=== PATIENT | male | born 1975 | race Two or more races ===

== ENCOUNTER 2024-02-06 11:05 | Outpatient (CLI) | payer OTHER, SELFPAY | END 2024-02-06 11:06 | disposition home or self-care (01) | LOC: NFLDREF 02-07 11:46 | PROVIDERS: PCP Internal Medicine; Referring Provider Internal Medicine; Visit Provider Internal Medicine | DX: I10 Essential (primary) hypertension (principal); E78.5 Hyperlipidemia, unspecified | CPT/HCPCS: 80053; 80061 ==

== ENCOUNTER 2024-05-31 09:21 | Outpatient (CLI) | payer OTHER, SELFPAY | END 2024-05-31 09:22 | disposition home or self-care (01) | LOC: NFLDREF 06-03 12:55 | PROVIDERS: PCP Internal Medicine; Referring Provider Internal Medicine; Visit Provider Internal Medicine | DX: E78.5 Hyperlipidemia, unspecified (principal); R73.03 Prediabetes; Z12.5 Encounter for screening for malignant neoplasm of prostate | CPT/HCPCS: 80053; 80061; G0103 ==

== ENCOUNTER 2024-06-05 10:58 | Outpatient (CLI) | payer OTHER, SELFPAY ==
--- OUTSIDE RECORDS SUMMARY | 2024-06-06 13:40 | XMS_ITS | Clinical Summary ---
Author Organization [facility] Address [address] [place] [address] Care Team Providers Care Incident Response Coordinator Name Role Phone No Ref-Primary, Physician Primary Care Provider Dima Alonso MD Unavailable [phone] Allergies No known active allergies Medications metFORMIN (GLUCOPHAGE) 500 MG tablet Take 500 mg by mouth 2 times daily (with meals) Active simvastatin (ZOCOR) 40 MG tablet Take 40 mg by mouth At Bedtime Active acetaminophen (TYLENOL) 325 MG tabletIndication s:Total knee replacement status, right Take 2 tablets (650 mg) by mouth every 4 hours as needed for other (mild pain) 100 tablet 3 Active aspirin (ASA) 325 MG EC tabletIndication s:Total knee replacement status, right Take 1 tablet (325 mg) by mouth daily 42 tablet 3 Active oxyCODONE (ROXICODONE) 5 MG tabletIndication s:Total knee replacement status, right Take 1-2 tablets (5-10 mg) by mouth every 4 hours as needed for moderate to severe pain 30 tablet 3 Active hydrOXYzine (ATARAX) 25 MG tabletIndication s:Total knee replacement status, right Take 1 tablet (25 mg) by mouth every 6 hours as needed for itching or anxiety (with pain, moderate pain) 30 tablet 3 Active Active Problems Problem Noted Date Diagnosed Date Status post total knee replacement 04/11/2023 Social History Tobacco Use Types Packs/Day Years Used Date Smoking Tobacco: Some Days Cigarettes Smokeless Tobacco: Never Tobacco Cessation:Ready to Q uit: Not Asked; Counseling Given: Not Answered Alcohol Use Standard Drinks/Week Comments Yes 0 (1 standard drink = 0.6 oz pur e alcohol) Occas Adolescent Education Answer Date Record ed Getting School Help Needed Not on file 04/06 Sex and Gender Information Value Date Recorded Sex Assigned at Not on file 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 Gender Identity Not on file Sexual Orientation Not on file Last Filed Vital Signs Vital Sign Reading Time Taken Comments Blood Pressure 134/79 04/12/2023 9:00 AM CDT Pulse 72 04/12/2023 8:32 AM CDT Temperature 36.1 C (97 F) 04/12/2023 8:32 AM CDT Respiratory Rate 19 04/12/2023 8:32 AM CDT Oxygen Saturation 97% 04/12/2023 9:00 AM CDT Inhaled Oxygen Concentration - - Weight 115.9 kg (255 lb 8.2 oz) 04/11/2023 7:50 PM CDT Height 167.6 cm (5' 6) 04/11/2023 7:50 PM CDT Body Mass Index 41.24 04/11/2023 7:50 PM CDT Plan of Treatment Health Maintenance Due Date Last Done Comments CT COLONOGRAPHY 1974 DIABETIC FOOT EXAM 1974 EYE EXAM 1974 FIT 1974 FLEX SIG 1974 LIPID 1974 MICROALBUMIN 1974 YEARLY PREVENTIVE VISIT 1974 sDNA (Cologuard) 1974 Pneumococcal Vaccine: Pediatrics (0 to 5 Years) and At-Risk Patients (6 to 64 Years) (1 of 2 - PCV) 1980 COLONOSCOPY 1984 COLORECTAL CANCER SCREENING 1984 HIV SCREENING 1989 HEPATITIS C SCREENING 1992 HEPATITIS B IMMUNIZATION (1 of 3 - 19+ 3-dose series) 1993 01/23/2014 DTAP/TDAP/TD IMMUNIZATION (1 - Tdap) 01/24/2014 01/23/2014 A1C 06/17/2023 03/18/2023 PHQ-2 (once per calendar year) 2023 COVID-19 Vaccine ( - season) 2024 04/11/2022, 06/13/2021, 11/21/2020, Additional history exists INFLUENZA VACCINE (#1) 2024 04/11/2022, 2009 ANNUAL REVIEW OF HM ORDERS 03/18/2024 03/18/2023 BMP 03/18/2024 03/18/2023 ZOSTER IMMUNIZATION (1 of 2) 2024 ADVANCE CARE PLANNING 03/18/2028 03/18/2023 RSV VACCINE (1 - 1-dose 75+ series) 2049 HPV IMMUNIZATION Aged Out No longer e ligible based on patient's age to complete this topic MENINGITIS IMMUNIZATION Aged Out No l onger eligible based on patient's age to complete this topic RSV MONOCLONAL ANTIBODY Aged Out No l onger eligible based on patient's age to complete this topic Medical Devices Implanted Type Area Salvage Clerk Device Identifier Shelf Expiration Date Model / Serial / Lot Bone Cement Simplex Full Dose 6191-1-001 - [id number] Implanted:Qty: 2 on 04/11/2023 by Dontae Edwards DO at [facility] Cement, Bone Right: Knee [employer] 09/08/2023 6191-1-001 / / [id number] System Tkr Id Imprt Kn Crcte Rtn Jig Strl Lf - [id number] Implanted:Qty: 1 on 04/11/2023 by Dontae Edwards DO at [facility] Total Joint Component /Insert Right: Knee CONFORMIS TCR-000-D0 02 / / Identity Imprint Cr Femur Size 5 [id number] - [id number] Implanted:Qty: 1 on 04/11/2023 by Dontae Edwards DO at [facility] Total Joint Component /Insert Right: Knee CONFORMIS 02/08/2028 TCR-101-F0 5S / / [id number] Identity Imprint Cr Tibia Size 5 [id number] - [id number] Implanted:Qty: 1 on 04/11/2023 by Dontae Edwards DO at [facility] Total Joint Component /Insert Right: Knee CONFORMIS 02/08/2028 TCR-301-T0 5S / / [id number] Cmpnt Ptlr Ovl 38x9mm Cmnt Itotal Ipoly Xe Kn Strl Lf - [id number] Implanted:Qty: 1 on 04/11/2023 by Dontae Edwards DO at [facility] Total Joint Component /Insert Right: Knee CONFORMIS 12/08/2024 [id number] / [id number] / Insert Cr Implanted:Qty: 1 on 04/11/2023 by Dontae Edwards DO at [facility] Right: Knee [id number] 12/09/2023 [id number] / / [id number] Procedures Procedure Name Priority Date/Time Associated Diagnosis Comments BASIC METABOLIC PANEL Routine 03/18/2023 11:53 AM CDT Preoperative examination HEMOGLOBIN A1C Routine 03/18/2023 11:53 AM CDT Type 2 diabetes mellitus without complication, without long-term current use of insulin (H) from Last 3 Months or Most Recently Relevant to Health Maintenance Results * (ABNORMAL) Hemoglobin A1c (03/18/2023 11:53 AM CDT) Hemoglobin A1C 6.5(H) 0.0 - 5.6 % 03/18/2023 12:00 PM CDT [facility] Comment: Normal <5.7% Prediabetes 5.7-6.4% Diabetes 6.5% or higher Note: Adopted from ADA consensus guidelines. Blood STRUCTURE OF LEFT UPPER LIMB / Unknown Venipuncture / Unknown 03/18/2023 11:53 AM CDT 03/18/2023 11:53 AM CDT us Dima Alonso MD LAB - BLOOD ORDERABLES F inal Result [facility] [place] [facility] [address], [address] [place] [address], [place] [phone] * (ABNORMAL) Basic metabolic panel (Ca, Cl, CO2, Creat, Gluc, K, Na, BUN) (03/18/2023 11:53 AM CDT) Sodium 140 136 - 145 mmol/L 03/18/2023 8:44 PM CDT [facility] Potassium 4.0 3.4 - 5.3 mmol/L 03/18/2023 8:44 PM CDT [facility] Chloride 105 98 - 107 mmol/L 03/18/2023 8:44 PM CDT [facility] Carbon Dioxide (CO2) 23 22 - 29 mmol/L 03/18/2023 8:44 PM CDT [facility] Anion Gap 12 7 - 15 mmol/L 03/18/2023 8:44 PM CDT [facility] Urea Nitrogen 21.5(H) 6.0 - 20.0 mg/dL 03/18/2023 8:44 PM CDT [facility] Creatinine 0.77 0.67 - 1.17 mg/dL 03/18/2023 8:44 PM CDT [facility] Calcium 9.1 8.6 - 10.0 mg/dL 03/18/2023 8:44 PM CDT [facility] Glucose 122(H) 70 - 99 mg/dL 03/18/2023 8:44 PM CDT [facility] GFR Estimate >90 >60 mL/min/1.7 3m2 03/18/2023 8:44 PM CDT [facility] Blood STRUCTURE OF LEFT UPPER LIMB / Unknown Venipuncture / Unknown 03/18/2023 11:53 AM CDT 03/18/2023 11:53 AM CDT Dima Alonso MD LAB - BLOOD ORDERABLES F inal Result [facility] [place] [facility] [address] [facility] [address] [facility], [address] [place] [address], [place] [phone] from Last 3 Months or Most Recently Relevant to Health Maintenance Insurance [address] [address] COMMERCIAL Advance Directives For more information, please contact: [phone] * Full Code (Latest Code Status on File) Date Activated Date Inactivated Comments 04/11/2023 7:07 PM 04/12/2023 4:12 PM All basic an d advanced life-sustaining interventions are performed as appropriate Question Answer Comments Code status determined by: Discussion with xavi nt/ legal decision maker Care Teams Incident Response Coordinator Relationship Specialty Start Date End Date No Ref-Primary, Physician PCP - General 03/11/23 Dima Alonso MD [address] [place] [address] Assigned PCP 02/23/23
--- OUTSIDE RECORDS SUMMARY | 2024-06-06 13:40 | XMS_ITS | Referral Summary ---
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 Cement, Bone Right: Knee [employer] 09/08/2023 6191-1-001 / / [id number] System Tkr Id Imprt Kn Crcte Rtn Jig Strl Lf - [id number] Implanted:Qty: 1 on 04/11/2023 by Dontae Edwards DO at [facility] Total Joint Component /Insert Right: Knee CONFORMIS TCR-000-D0 02 / / Identity Imprint Cr Femur Size 5 [id number] - [id number] Implanted:Qty: 1 on 04/11/2023 by Dontae Edwards DO at [facility] Total Joint Component /Insert Right: Knee CONFORMIS 02/08/2028 TCR-101-F0 5S / / [id number] Identity Imprint Cr Tibia Size 5 [id number] - [id number] Implanted:Qty: 1 on 04/11/2023 by Dontae Edwards DO at [facility] Total Joint Component /Insert Right: Knee CONFORMIS 02/08/2028 [facility]-301-T0 5S / / [id number] Cmpnt Ptlr Ovl 38x9mm Cmnt Itotal Ipoly Xe Kn Strl Lf - [id number] Implanted:Qty: 1 on 04/11/2023 by Dontae Edwards DO at [facility] Total Joint Component /Insert Right: Knee CONFORMIS 12/08/2024 [id number] / [id number] / Insert Cr Implanted:Qty: 1 on 04/11/2023 by Dontae Edwards DO at [facility] Right: Knee [id number] 12/09/2023 [id number] / / [id number] Procedures Procedure Name Priority Date/Time Associated Diagnosis [...] LAB - BLOOD ORDERABLES F inal Result [facility] [address], [address] [place] [address], [place] [phone] * (ABNORMAL) Basic metabolic panel (Ca, Cl, CO2, Creat, Gluc, K, Na, BUN) (03/18/2023 11:53 AM CDT) Pathologist [facility] Sodium 140 136 - 145 mmol/L 03/18/2023 [...] BLOOD ORDERABLES F inal Result [facility] [place] [facility] [address] [facility], [address] [place] [address], [place] [phone] from Last 3 Months or Most Recently Relevant to Health Maintenance Insurance [facility] COMMERCIAL Advance Directives For more information, please contact: [phone] * Full Code (Latest Code Status on File) Date Activated Date Inactivated Comments 04/11/2023 7:07 PM 04/12/2023 4:12 PM All basic an d advanced life-sustaining interventions are performed as appropriate Question Answer Comments Code status determined by: Discussion with patie nt/ legal decision maker Care Teams Meter Reader Inspector Relationship Specialty Start Date End Date No Ref-Primary, Physician PCP - General 03/11/23 Dima Alonso MD [address] [place] [address] Assigned PCP 02/23/23
--- OUTSIDE RECORDS SUMMARY | 2024-06-06 13:40 | XMS_ITS | Clinical Summary ---
Author Organization [facility] Address [address] [place] [address] Care Team Providers Care Swatch Checker Name Role Phone Navi Foreman MD Primary Care Provider [phone] Source Comments You are receiving this document as you are listed as the primary care provider,follow-up provider, or the patient has been referred to you for consultation.This is in compliance with the Medicare and[facility] EHR Incentive Program,which states Providers who transition their patient to another setting of careor provider of care or refers their patient to another provider of care shouldprovide summary care record for each transition of care or referral. [facility] Allergies No known active allergies Medications Medication Sig Dispensed Refills Start Date End Date Status unknown medication Indications: PN: 12/06/2006 Active Family History Medical History Relation Name Comments Amblyopia/Strabismus Negative Family History Cataract Negative Family History Glaucoma Negative Family History Macular Degeneration Negative Family History Retinal Detachment Negative Family History Social History Tobacco Use Types Packs/Day Years Used Date Smoking Tobacco: Unknown Sex and Gender Information Value Date Recorded Sex Assigned at Not on file Gender Identity Not on file Sexual Orientation Not on file Last Filed Vital Signs Vital Sign Reading Time Taken Comments Blood Pressure - - Pulse - - Temperature - - Respiratory Rate - - Oxygen Saturation - - Inhaled Oxygen Concentration - - Weight 111.6 kg (246 lb) 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 Height 169 cm (5' 6.54) 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 Body Mass Index 39.07 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 Plan of Treatment Health Maintenance Due Date Last Done Comments Colon Cancer Screening Plan Due 1974 Diabetes: Foot Exam 1974 Hep C Screening (Preventive Services) 1974 PSA Screening Discussion 1974 Pneumococcal (1 - PCV) 1980 HIV Screening (Preventive Services) 1990 Adult Preventive Visit 1992 HepB (1) 1993 DTaP/Tdap/Td (1 - Tdap) 01/24/2014 01/23/2014 Diabetes: Eye Exam 07/21/2016 07/21/2015 Diabetes: HGBA1C 04/01/2023 09/29/2022, , 12/29/2021, Additional history exists Diabetes: Creatinine 09/30/2023 09/29/2022, 12/29/2021, 03/27/2019 Diabetes: Urine Microalbumin 09/30/2023 09/29/2022 COVID-19 Vaccine ( season) 2024 06/13/2021, 11/21/2020, 10/31/2020 Influenza (#1) 2024 05/24/2010 Zoster/Shingles (1 of 2) 2024 Diabetes: Lipid Panel 09/30/2027 09/29/2022 , 09/29/2022, 03/26/2022, Additional history exists Cholesterol Discontinued 09/29/2022, 03/11, 09/18/2021, Additional history exists HepA Aged Out No longer eligi ble based on patient's age to complete this topic Hib Aged Out No longer eligi ble based on patient's age to complete this topic IPV (Polio) Aged Out No longer eligi ble based on patient's age to complete this topic Infant RSV Aged Out No longer eligi ble based on patient's age to complete this topic MCV4 Aged Out No longer eligi ble based on patient's age to complete this topic Procedures Procedure Name Priority Date/Time Associated Diagnosis Comments COMPREHENSIVE METABOLIC PANEL Routine 09/29/2022 10:42 AM CDT Routine general medical examination at health care facility ALBUMIN/CREAT RATIO Routine 09/29/2022 1 0:42 AM CDT Routine general medical examination at health care facility HGB A1C Routine 09/29/2022 10:42 AM CDT Routine general medical examination at health care facility LIPID PANEL & DIRECT LDL (IF NEEDED) Routine 09/29/2022 10:42 AM CDT Routine general medical examination at health care facility from Last 3 Months or Most Recently Relevant to Health Maintenance Results * (ABNORMAL) Lipid Panel (reflex to Direct LDL if indicated) (09/29/2022 10:42 AM CDT) Cholesterol 263(H) 0 - 199 mg/dL 09/29/2022 2:24 PM CDT [facility] Triglyceride 480(H) <=149 mg/dL 09/29/2022 2:24 PM T [facility] HDL Cholesterol 43 >=40 mg/dL 09/29/2022 2:24 PM T [facility] LDL, Calculated 2:24 PM [facility] Comment:Unable to calculate, raw result outside instrument reportable range. Non HDL Chol, Calculated 220(H) <=159 mg/dL 09/29/2022 2:24 PM T [facility] Cholesterol/HDL Ratio 6.1 09/29/2022 2:24 PM [facility] Hours Fasting Unknown 09/29/2022 2:24 PM [facility] Blood Venipuncture / Unknown 09/29/2022 10:42 AM CDT 09/29/2022 11:04 AM CDT Narrative [facility] - 09/29/2022 2:24 PM CDT Calculated LDL is invalid when Triglyceride is >400 mg/dL. Zara Gregg MD LAB_1 [facility] [address] [place] [address], [facility] [phone] * (ABNORMAL) Comp Metabolic Panel (09/29/2022 10:42 AM CDT) Sodium 138 136 - 145 mmol/L 09/29/2022 2:24 PM CDT [facility] Potassium 3.6 3.5 - 5.1 mmol/L 09/29/2022 2:24 PM CDT [facility] Chloride 102 98 - 109 mmol/L 09/29/2022 2:24 PM [facility] CO2 24 20 - 29 mmol/L 09/29/2022 2:24 PM [facility] Anion Gap 12 7 - 16 mmol/L 09/29/2022 2:24 PM [facility] Calcium 9.7 8.4 - 10.4 mg/dL 09/29/2022 2:24 PM [facility] BUN 19 7 - 26 mg/dL 09/29/2022 2:24 PM [facility] Creatinine 0.90 0.73 - 1.18 mg/dL 09/29/2022 2:24 PM [facility] Alkaline Phosphatase 100 40 - 150 U/L 09/29/2022 2:24 PM [facility] AST (SGOT) 58(H) 10 - 40 U/L 09/29/2022 2:24 PM [facility] ALT (SGPT) 105(H) <=55 U/L 09/29/2022 2:24 PM [facility] Bilirubin, Total 1.3(H) 0.2 - 1.2 mg/dL 09/29/2022 2:24 PM [facility] Protein, Total 7.9 6.4 - 8.3 g/dL 09/29/2022 2:24 PM [facility] Albumin 4.3 3.5 - 5.0 g/dL 09/29/2022 2:24 PM [facility] Glucose 159(H) 70 - 100 mg/dL 09/29/2022 2:24 PM [facility] Comment:The given reference range is for the fasting state. Non-fasting reference range for glucose is 70 - 180 mg/dL. Hours Fasting Unknown 09/29/2022 2:24 PM [facility] GFR, Estimated >60 >60 mL/min/1.7 3m2 09/29/2022 2:24 PM [facility] Blood Venipuncture / Unknown 09/29/2022 10:42 AM CDT 09/29/2022 11:04 AM CDT Zara Gregg MD LAB_1 [facility] [address] [place] [address], [facility] [phone] * Albumin/Creatinine Ratio,Random Urine (09/29/2022 10:42 AM CDT) Pathologist [facility] Albumin/Creati nine Ratio, Urine, Random 10 <30 mg/g 09/29/2022 2:08 PM CDT [facility] Albumin, Urine, Random 31.6 mg/L 09/29/2022 2:08 PM CDT [facility] Creatinine, Urine, Random 313 >20 mg/dL mg/dL 09/29/2022 2:08 PM CDT [facility] Urine Non-blood Collection / Unknown 09/29/2022 10:42 AM CDT 09/29/2022 11:13 AM CDT Zara Gregg MD LAB_1 Performing Organization Address City/State/[facility] Co de Phone Number [facility] [address] [place] [address], [facility] [phone] * (ABNORMAL) Hgb A1C (09/29/2022 10:42 AM CDT) Pathologist [facility] Hemoglobin A1C (Rapid) 7.7(H) <=5.6 % 09/29/2022 11:24 AM T [facility] Estimated Average Glucose (Calc) 174 < 117 mg/dL 09/29/2022 11:24 AM [facility] Comment:Estimated average gl ucose (eAG) converts A1c into glucose units (mg/dL) and estimates average glucose over the past approximately 3 months. The eAG reference interval (<117 mg/dL) corresponds to an A1c of <5.7%. Blood Venipuncture / Unknown 09/29/2022 10:42 AM CDT 09/29/2022 11:04 AM CDT Narrative [facility] - 09/29/2022 11:24 AM CDT For patients not previously diagnosed with diabetes: 5.7-6.4%: Increased risk for diabetes 6.5% and greater: Diagnostic for diabetes For patients diagnosed with diabetes: <8.0%: Goal of therapy for ages 18-75 Clinicians may recommend a higher or lower goal for specific individuals. The test method used for this Hemoglobin A1c result can experience interference from elevated hemoglobin and other hemoglobin variants. In patients with results that do not correlate clinically, contact the lab for further direction. Zara Gregg MD LAB_1 [facility] [address] [place] [address], [facility] [phone] from Last 3 Months or Most Recently Relevant to Health Maintenance Care Teams Swatch Checker Relationship Specialty Start Date End Date Navi Foreman MD [address] [facility] [place] [address] PCP - General 10/12/10
== END 2024-06-05 10:59 | disposition home or self-care (01) ==
LOC: NFLDREF 06-06 13:38
PROVIDERS: PCP Internal Medicine; Referring Provider Internal Medicine; Visit Provider Internal Medicine
DX: N39.0 Urinary tract infection, site not specified (principal); E11.9 Type 2 diabetes mellitus without complications
CPT/HCPCS: 87086

== ENCOUNTER 2024-08-09 10:20 | Outpatient (CLI) | payer OTHER, SELFPAY | END 2024-08-09 10:21 | disposition home or self-care (01) | PROVIDERS: PCP Internal Medicine; Visit Provider Internal Medicine | DX: I10 Essential (primary) hypertension (principal); E78.5 Hyperlipidemia, unspecified; E11.9 Type 2 diabetes mellitus without complications; N39.0 Urinary tract infection, site not specified | CPT/HCPCS: 80053; 80061; 82043; 82570 ==